=== PATIENT | female | born 1935 | race Caucasian/White ===

== ENCOUNTER 2017-11-02 15:57 | Inpatient (IN) | payer OTHER ==
[~2017-11-02] VITALS: Ht 147.3 cm; Wt 61.7 kg
[~2017-11-02 15:57] MED LIST: ALTACE10 MG PO; AMLODIPINE BESYL5 M1 PO; ATORVASTATIN CA20 M1 PO; ECO81 PO; GLIPIZIDE5 MG PO; LAC PO; LEVAQUIN250 MG PO; LISINOPRIL20 MG PO; METFORMIN HCL1000 MG PO; METOPROLOL SUCC50 M2 PO; METOPROLOL TART25 M1 PO; NOR5 PO; VYTORIN1 TA3 PO; ZES20 PO
[2017-11-02 16:55] LABS: UA SPECIFIC GRAVITY 1.015 (1.005-1.035); microscopic required? YES; urine erythrocyte NEGATIVE (NEGATIVE)
[2017-11-02 16:57] LABS: BASOPHIL % 0.3 % (0-2); PLATELET COUNT 226 x10^3mcL (130-400); RED CELL DISTRIBUTION WIDTH 14.1 % (11.5-14.5)
[2017-11-02 17:23] LABS: ALKALINE PHOSPHATASE 82 U/L (46-116); ALT/SGPT 18 U/L (14-59); AST/SGOT 21 U/L (15-37); BILIRUBIN TOTAL 0.52 mg/dL (0.20-1.00); CALCIUM 8.2 mg/dL (8.5-10.1); CARBON DIOXIDE 13.2 mmol/L (21-32); CHLORIDE SERUM 114 mmol/L (98-107); GLUCOSE SERUM 156 mg/dL (74-106); POTASSIUM SERUM 4.3 mmol/L (3.5-5.1); SODIUM SERUM 138 mmol/L (136-145); TOTAL PROTEIN, SERUM 6.7 g/dL (6.4-8.2)
[2017-11-02 17:25] LABS: ALBUMIN 3.3 g/dL (3.4-5.0)
[2017-11-02 17:29] LABS: T3 TOTAL 0.84 ng/mL
[2017-11-02 17:31] LABS: FREE T4 0.97 ng/dL (0.76-1.46); FREE THYROXINE INDEX 2.1 ug/dL (1.4-4.5); T4(THYROXINE) 6.7 ug/dL (4.7-13.3)
[2017-11-02 17:32] LABS: CK-MB 1.7 ng/mL (0-3.6)
[2017-11-02 17:36] LABS: C REACTIVE PROTEIN < 0.2 mg/dL (<=0.9)
[2017-11-02 17:38] LABS: ERYTHROCYTE SED RATE 43 mm/hr (0-30)
[2017-11-02] MEDS ORDERED: METOPROLOL TART25 M1 PO (18:41)
[2017-11-02] MEDS ORDERED: NOR5 PO (18:42)
[2017-11-02 19:52] VITALS: BP 111/68
[2017-11-02 20:48] VITALS: Ht 147.3 cm; Wt 61.7 kg
[2017-11-03 05:40] VITALS: BP 165/60
[2017-11-03 06:29] VITALS: BP 136/54
[2017-11-03 06:38] LABS: BASOPHIL % 0.2 % (0-2); PLATELET COUNT 203 x10^3mcL (130-400); RED CELL DISTRIBUTION WIDTH 14.5 % (11.5-14.5)
[2017-11-03 06:57] LABS: CALCIUM 7.7 mg/dL (8.5-10.1); CARBON DIOXIDE 14.8 mmol/L (21-32); CHLORIDE SERUM 120 mmol/L (98-107); CREATININE SERUM 1.5 mg/dL (0.6-1.0); GLUCOSE SERUM 71 mg/dL (74-106); POTASSIUM SERUM 4.6 mmol/L (3.5-5.1); SODIUM SERUM 144 mmol/L (136-145)
[2017-11-03 09:40] VITALS: BP 137/58
[2017-11-03] MEDS ORDERED: GLIPIZIDE2.5 M1 PO (10:20)
[2017-11-03 13:42] VITALS: BP 159/59
[2017-11-03 18:25] VITALS: BP 145/58
[2017-11-03 18:33] VITALS: BP 145/58
== END 2017-11-03 19:38 | disposition home or self-care (01) | DRG 683 ==
LOC: ED 15:57 → DU 18:19
PROVIDERS: Internal Medicine Pulmonary Disease; Specialist
DX: N17.9 Acute kidney failure, unspecified (principal); E87.2 Acidosis; I50.32 Chronic diastolic (congestive) heart failure; E86.0 Dehydration; E86.1 Hypovolemia; E11.649 Type 2 diabetes mellitus with hypoglycemia without coma; E11.22 Type 2 diabetes mellitus with diabetic chronic kidney disease; N18.3 Chronic kidney disease, stage 3 (moderate); I48.91 Unspecified atrial fibrillation; I35.1 Nonrheumatic aortic (valve) insufficiency; I34.0 Nonrheumatic mitral (valve) insufficiency; I36.1 Nonrheumatic tricuspid (valve) insufficiency; D63.1 Anemia in chronic kidney disease; F03.90 Unspecified dementia, unspecified severity, without behavioral disturbance, psychotic disturbance, mood disturbance, and anxiety; Z68.28 Body mass index [BMI] 28.0-28.9, adult; Z79.84 Long term (current) use of oral hypoglycemic drugs; Z79.82 Long term (current) use of aspirin; Z90.2 Acquired absence of lung [part of]
CPT/HCPCS: 36600; 82962; 83880; 84439; 97110-GP; J0696; J1650; J3490; J7030

== ENCOUNTER 2018-03-24 13:24 | Inpatient (IN) | payer OTHER ==
[~2018-03-24] VITALS: Ht 147.3 cm; Wt 63.0 kg
[~2018-03-24 13:24] MED LIST changes: +GLIPIZIDE2.5 M1 PO
[2018-03-24 13:52] LABS: BASOPHIL % 0.9 % (0-2); PLATELET COUNT 248 x10^3mcL (130-400); RED CELL DISTRIBUTION WIDTH 13.7 % (11.5-14.5)
[2018-03-24 14:03] LABS: CARBON DIOXIDE 21.6 mmol/L (21-32); CHLORIDE SERUM 108 mmol/L (98-107); CREATININE SERUM 1.6 mg/dL (0.6-1.0); GLUCOSE SERUM 138 mg/dL (74-106); POTASSIUM SERUM 4.5 mmol/L (3.5-5.1); SODIUM SERUM 141 mmol/L (136-145)
[2018-03-24 14:07] LABS: ALBUMIN 3.6 g/dL (3.4-5.0); ALKALINE PHOSPHATASE 105 U/L (46-116); ALT/SGPT 16 U/L (14-59); AST/SGOT 21 U/L (15-37); BILIRUBIN TOTAL 0.6 mg/dL (0.20-1.00); TOTAL PROTEIN, SERUM 7.6 g/dL (6.4-8.2)
[2018-03-24 17:28] VITALS: BP 206/84
[2018-03-24 17:34] VITALS: Ht 147.3 cm; Wt 63.0 kg
[2018-03-24 18:01] VITALS: BP 163/72
[2018-03-24 19:02] VITALS: BP 162/72
[2018-03-24 20:54] VITALS: BP 133/56
[2018-03-25 05:19] VITALS: BP 132/63
[2018-03-25 07:30] LABS: CHOLESTEROL/HDL RATIO 2.3
[2018-03-25 08:53] VITALS: BP 139/56
[2018-03-25 12:12] VITALS: BP 134/83
[2018-03-25 13:22] VITALS: BP 134/83
[2018-03-25 16:23] VITALS: BP 137/60
== END 2018-03-25 16:58 | disposition home or self-care (01) | DRG 304 ==
LOC: ED 13:24 → DU 15:45
PROVIDERS: Emergency Medicine; ADMIT Internal Medicine Pulmonary Disease
DX: I16.0 Hypertensive urgency (principal); I50.33 Acute on chronic diastolic (congestive) heart failure; N39.0 Urinary tract infection, site not specified; N17.9 Acute kidney failure, unspecified; I11.0 Hypertensive heart disease with heart failure; E11.9 Type 2 diabetes mellitus without complications; E86.0 Dehydration; I36.1 Nonrheumatic tricuspid (valve) insufficiency; I35.1 Nonrheumatic aortic (valve) insufficiency; I34.0 Nonrheumatic mitral (valve) insufficiency; M81.0 Age-related osteoporosis without current pathological fracture; F03.90 Unspecified dementia, unspecified severity, without behavioral disturbance, psychotic disturbance, mood disturbance, and anxiety; Z90.2 Acquired absence of lung [part of]; Z79.84 Long term (current) use of oral hypoglycemic drugs; Z91.14 Patient's other noncompliance with medication regimen
CPT/HCPCS: 82962; 83880; J0360; J0696; J1650; J7030; Q0092

== ENCOUNTER 2018-04-05 18:28 | Inpatient (IN) | payer OTHER ==
[~2018-04-05] VITALS: Ht 162.6 cm; Wt 61.0 kg
[2018-04-05 20:16] LABS: BASOPHIL % 0.6 % (0-2); PLATELET COUNT 267 x10^3mcL (130-400); RED CELL DISTRIBUTION WIDTH 13.3 % (11.5-14.5)
[2018-04-05 20:23] LABS: CALCIUM 8.9 mg/dL (8.5-10.1); CARBON DIOXIDE 23.2 mmol/L (21-32); CHLORIDE SERUM 108 mmol/L (98-107); CREATININE SERUM 1.7 mg/dL (0.6-1.0); GLUCOSE SERUM 135 mg/dL (74-106); POTASSIUM SERUM 4.5 mmol/L (3.5-5.1); SODIUM SERUM 142 mmol/L (136-145)
[2018-04-05 20:34] LABS: ALBUMIN 3.6 g/dL (3.4-5.0); ALKALINE PHOSPHATASE 101 U/L (46-116); ALT/SGPT 19 U/L (14-59); AST/SGOT 20 U/L (15-37); BILIRUBIN TOTAL 0.59 mg/dL (0.20-1.00); TOTAL PROTEIN, SERUM 7.6 g/dL (6.4-8.2)
[2018-04-05 20:40] LABS: C REACTIVE PROTEIN 0.2 mg/dL (<=0.9)
[2018-04-05 20:44] LABS: FREE T4 1.13 ng/dL (0.76-1.46); FREE THYROXINE INDEX 3.3 ug/dL (1.4-4.5); T3 TOTAL 0.93 ng/mL; T4(THYROXINE) 9.3 ug/dL (4.7-13.3)
[2018-04-05 21:00] LABS: microscopic required? YES; urine erythrocyte NEGATIVE (NEGATIVE)
[2018-04-05 21:17] LABS: ERYTHROCYTE SED RATE 39 mm/hr (0-30)
[2018-04-05 21:45] LABS: CK-MB 1.9 ng/mL (0-3.6)
[2018-04-05 22:19] VITALS: BP 185/79
[2018-04-05 22:36] VITALS: BP 174/85
[2018-04-05 23:10] LABS: CHOLESTEROL/HDL RATIO 3.5; MAGNESIUM 1.8 mg/dL (1.8-2.4); PHOSPHOROUS 4.7 mg/dL (2.5-4.9)
[2018-04-06 02:16] VITALS: BP 145/58
[2018-04-06 05:50] VITALS: BP 146/54
[2018-04-06 06:27] LABS: BASOPHIL % 0.1 % (0-2); PLATELET COUNT 243 x10^3mcL (130-400); RED CELL DISTRIBUTION WIDTH 13.1 % (11.5-14.5)
[2018-04-06 06:46] LABS: CALCIUM 8.6 mg/dL (8.5-10.1); CARBON DIOXIDE 18.5 mmol/L (21-32); CHLORIDE SERUM 111 mmol/L (98-107); CREATININE SERUM 1.6 mg/dL (0.6-1.0); GLUCOSE SERUM 166 mg/dL (74-106); MAGNESIUM 1.6 mg/dL (1.8-2.4); PHOSPHOROUS 3.3 mg/dL (2.5-4.9); SODIUM SERUM 140 mmol/L (136-145)
[2018-04-06 09:55] VITALS: BP 118/61
[2018-04-06 14:19] VITALS: BP 116/46
[2018-04-06 17:30] VITALS: BP 116/46
[2018-04-06 20:53] VITALS: BP 126/66
[2018-04-07 04:36] VITALS: BP 155/59
[2018-04-07 06:16] LABS: BASOPHIL % 0.3 % (0-2); PLATELET COUNT 225 x10^3mcL (130-400); RED CELL DISTRIBUTION WIDTH 13.7 % (11.5-14.5)
[2018-04-07 06:31] LABS: CALCIUM 8.1 mg/dL (8.5-10.1); CHLORIDE SERUM 113 mmol/L (98-107); CREATININE SERUM 1.9 mg/dL (0.6-1.0); GLUCOSE SERUM 83 mg/dL (74-106); MAGNESIUM 1.8 mg/dL (1.8-2.4); PHOSPHOROUS 3.9 mg/dL (2.5-4.9); SODIUM SERUM 143 mmol/L (136-145)
[2018-04-07 08:30] VITALS: BP 150/45
[2018-04-07 14:49] VITALS: Ht 162.6 cm; Wt 61.0 kg
[2018-04-07 17:00] VITALS: BP 112/70
[2018-04-07 20:51] VITALS: BP 116/87
[2018-04-08 05:04] VITALS: BP 117/38
[2018-04-08 08:11] VITALS: BP 150/74
[2018-04-08 12:08] VITALS: BP 146/70
[2018-04-08 16:16] VITALS: BP 128/62
[2018-04-08 21:03] VITALS: BP 138/59
[2018-04-09 05:24] VITALS: BP 114/75
[2018-04-09 06:54] LABS: CALCIUM 8.1 mg/dL (8.5-10.1); CARBON DIOXIDE 20.9 mmol/L (21-32); CHLORIDE SERUM 109 mmol/L (98-107); CREATININE SERUM 1.3 mg/dL (0.6-1.0); GLUCOSE SERUM 101 mg/dL (74-106); POTASSIUM SERUM 4.9 mmol/L (3.5-5.1); SODIUM SERUM 137 mmol/L (136-145)
[2018-04-09 08:06] VITALS: BP 181/79
[2018-04-09 09:28] LABS: BASOPHIL % 0.6 % (0-2)
[2018-04-09 09:33] LABS: PLATELET COUNT 225 x10^3mcL (130-400); RED CELL DISTRIBUTION WIDTH 13.6 % (11.5-14.5)
[2018-04-09 12:27] VITALS: BP 170/70
[2018-04-09 16:41] VITALS: BP 148/62
[2018-04-09 21:19] VITALS: BP 165/83
[2018-04-09 22:02] VITALS: BP 149/75
[2018-04-10 05:56] VITALS: BP 183/82
[2018-04-10 06:55] VITALS: BP 153/72
[2018-04-10 07:16] LABS: CALCIUM 8.6 mg/dL (8.5-10.1); CARBON DIOXIDE 18.7 mmol/L (21-32); CHLORIDE SERUM 109 mmol/L (98-107); CREATININE SERUM 1.3 mg/dL (0.6-1.0); GLUCOSE SERUM 124 mg/dL (74-106); POTASSIUM SERUM 4.4 mmol/L (3.5-5.1); SODIUM SERUM 140 mmol/L (136-145)
[2018-04-10 07:49] LABS: BASOPHIL % 0.7 % (0-2); PLATELET COUNT 248 x10^3mcL (130-400); RED CELL DISTRIBUTION WIDTH 13.1 % (11.5-14.5)
[2018-04-10 07:54] VITALS: BP 136/60
[2018-04-10 12:11] VITALS: BP 140/74
[2018-04-10 17:01] VITALS: BP 147/59
[2018-04-10 20:35] VITALS: BP 147/76
[2018-04-11 06:00] VITALS: BP 145/72
[2018-04-11 06:44] LABS: CALCIUM 8.3 mg/dL (8.5-10.1); CARBON DIOXIDE 18.3 mmol/L (21-32); CHLORIDE SERUM 110 mmol/L (98-107); CREATININE SERUM 1.2 mg/dL (0.6-1.0); GLUCOSE SERUM 73 mg/dL (74-106); POTASSIUM SERUM 4.4 mmol/L (3.5-5.1); SODIUM SERUM 139 mmol/L (136-145)
[2018-04-11 07:02] LABS: BASOPHIL % 0.9 % (0-2); PLATELET COUNT 224 x10^3mcL (130-400); RED CELL DISTRIBUTION WIDTH 13.2 % (11.5-14.5)
[2018-04-11 08:52] VITALS: BP 105/81
[2018-04-11 13:30] VITALS: BP 143/51
[2018-04-11 17:39] VITALS: BP 148/46
[2018-04-11 21:04] VITALS: BP 144/84
[2018-04-12] VITALS (7 sets, daily range): BP systolic 119–185; BP diastolic 67–77
[2018-04-12 06:46] LABS: CALCIUM 8.4 mg/dL (8.5-10.1); CARBON DIOXIDE 20.9 mmol/L (21-32); CHLORIDE SERUM 107 mmol/L (98-107); CREATININE SERUM 1.3 mg/dL (0.6-1.0); GLUCOSE SERUM 91 mg/dL (74-106); MAGNESIUM 1.4 mg/dL (1.8-2.4); POTASSIUM SERUM 4.7 mmol/L (3.5-5.1); SODIUM SERUM 137 mmol/L (136-145)
[2018-04-12 10:33] LABS: BASOPHIL % 0.8 % (0-2); PLATELET COUNT 228 x10^3mcL (130-400); RED CELL DISTRIBUTION WIDTH 13.1 % (11.5-14.5)
[2018-04-13 05:09] VITALS: BP 97/61
[2018-04-13 06:26] LABS: CALCIUM 8.4 mg/dL (8.5-10.1); CARBON DIOXIDE 21.7 mmol/L (21-32); CHLORIDE SERUM 109 mmol/L (98-107); CREATININE SERUM 1.5 mg/dL (0.6-1.0); GLUCOSE SERUM 110 mg/dL (74-106); MAGNESIUM 2.9 mg/dL (1.8-2.4); POTASSIUM SERUM 5.1 mmol/L (3.5-5.1); SODIUM SERUM 140 mmol/L (136-145)
[2018-04-13 10:05] VITALS: BP 134/48
[2018-04-13] MEDS ORDERED: APR50 PO (11:57)
[2018-04-13 12:28] VITALS: BP 134/48
[2018-04-13 12:37] VITALS: BP 143/63
== END 2018-04-13 16:07 | disposition home health service (06) | DRG 689 ==
LOC: ED 18:28 → DU 21:13
PROVIDERS: Internal Medicine; Internal Medicine Cardiovascular Disease; Specialist; ADMIT Internal Medicine Pulmonary Disease
DX: N39.0 Urinary tract infection, site not specified (principal); G93.41 Metabolic encephalopathy; N17.0 Acute kidney failure with tubular necrosis; I24.8 Other forms of acute ischemic heart disease; Z68.1 Body mass index [BMI] 19.9 or less, adult; D68.69 Other thrombophilia; I12.9 Hypertensive chronic kidney disease with stage 1 through stage 4 chronic kidney disease, or unspecified chronic kidney disease; E11.65 Type 2 diabetes mellitus with hyperglycemia; E11.22 Type 2 diabetes mellitus with diabetic chronic kidney disease; N18.3 Chronic kidney disease, stage 3 (moderate); I48.91 Unspecified atrial fibrillation; I49.3 Ventricular premature depolarization; E78.5 Hyperlipidemia, unspecified; Z79.84 Long term (current) use of oral hypoglycemic drugs
CPT/HCPCS: 36600; 82962; 83880; 84439; 97110-GP; 97116-GP; 97530-GP; J0360; J0696; J1815; J2060; J2405; J3475; J7030; Q0092

== ENCOUNTER 2018-06-27 00:23 | Inpatient (IN) | payer OTHER ==
[~2018-06-27] VITALS: Ht 149.9 cm; Wt 60.5 kg
[2018-06-27] VITALS (7 sets, daily range): BP systolic 103–176; BP diastolic 56–70; Ht 149.9 cm; Wt 60.5 kg
[~2018-06-27 00:23] MED LIST changes: +APR50 PO
[2018-06-27 00:57] LABS: microscopic required? NO
[2018-06-27 01:02] LABS: UA SPECIFIC GRAVITY 1.015 (1.005-1.035); urine erythrocyte NEGATIVE (NEGATIVE)
[2018-06-27 01:14] LABS: CALCIUM 8.2 mg/dL (8.5-10.1); CARBON DIOXIDE 21.5 mmol/L (21-32); CHLORIDE SERUM 109 mmol/L (98-107); GLUCOSE SERUM 150 mg/dL (74-106); POTASSIUM SERUM 4.1 mmol/L (3.5-5.1); SODIUM SERUM 140 mmol/L (136-145)
[2018-06-27 01:23] LABS: BASOPHIL % 0.7 % (0-2); PLATELET COUNT 235 x10^3mcL (130-400); RED CELL DISTRIBUTION WIDTH 14.1 % (11.5-14.5)
[2018-06-27 01:26] LABS: ALBUMIN 3.5 g/dL (3.4-5.0); ALKALINE PHOSPHATASE 83 U/L (46-116); ALT/SGPT 20 U/L (14-59); AST/SGOT 18 U/L (15-37); BILIRUBIN TOTAL 0.48 mg/dL (0.20-1.00); LIPASE 396 IU/L (73-393)
[2018-06-27] MEDS ORDERED: LIPI20 PO (03:18)
[2018-06-27] MEDS ORDERED: LISINOPRIL2.5 MG PO (03:19)
[2018-06-27] MEDS ORDERED: GLIPIZIDE2.5 M1 PO (03:19)
[2018-06-27] MEDS ORDERED: METOPROLOL TART25 M1 PO (03:20)
[2018-06-27] MEDS ORDERED: ASPIR 8181 MG PO (03:20)
[2018-06-27] MEDS ORDERED: NOR5 PO (03:20)
[2018-06-27 08:42] LABS: BASOPHIL % 0.6 % (0-2); PLATELET COUNT 207 x10^3mcL (130-400)
[2018-06-27 08:55] LABS: ALKALINE PHOSPHATASE 77 U/L (46-116); ALT/SGPT 18 U/L (14-59); AST/SGOT 18 U/L (15-37); BILIRUBIN TOTAL 0.49 mg/dL (0.20-1.00); CALCIUM 8.1 mg/dL (8.5-10.1); CARBON DIOXIDE 19.9 mmol/L (21-32); CHLORIDE SERUM 111 mmol/L (98-107); CREATININE SERUM 1.7 mg/dL (0.6-1.0); GLUCOSE SERUM 224 mg/dL (74-106); POTASSIUM SERUM 4.7 mmol/L (3.5-5.1); SODIUM SERUM 141 mmol/L (136-145); TOTAL PROTEIN, SERUM 6.4 g/dL (6.4-8.2)
[2018-06-27 08:56] LABS: ALBUMIN 3.2 g/dL (3.4-5.0)
[2018-06-27] MEDS ORDERED: LAC30L PO (18:55)
[2018-06-28 04:32] VITALS: BP 112/64
[2018-06-28 09:21] VITALS: BP 171/75
[2018-06-28 12:55] VITALS: BP 137/71
[2018-06-28 13:52] VITALS: BP 137/71
== END 2018-06-28 16:35 | disposition home health service (06) | DRG 391 ==
LOC: ED 00:23 → DU 03:22
PROVIDERS: Emergency Medicine; Internal Medicine; ADMIT Internal Medicine
DX: K59.00 Constipation, unspecified (principal); I21.A1 Myocardial infarction type 2; N17.9 Acute kidney failure, unspecified; K57.30 Diverticulosis of large intestine without perforation or abscess without bleeding; E11.65 Type 2 diabetes mellitus with hyperglycemia; Z86.73 Personal history of transient ischemic attack (TIA), and cerebral infarction without residual deficits; N18.9 Chronic kidney disease, unspecified; F01.50 Vascular dementia, unspecified severity, without behavioral disturbance, psychotic disturbance, mood disturbance, and anxiety; I12.9 Hypertensive chronic kidney disease with stage 1 through stage 4 chronic kidney disease, or unspecified chronic kidney disease
CPT/HCPCS: 82962; J7030; Q0092